=== PATIENT | male | born 1955 | race Caucasian/White ===

== ENCOUNTER 2024-12-23 15:03 | Emergency (ER) | payer MEDICARE, OTHER | END 2024-12-23 16:40 | disposition home or self-care (01) | LOC: JD.ED 15:03 | DX: S51.812A Laceration without foreign body of left forearm, initial encounter (principal); Z88.5 Allergy status to narcotic agent; W26.0XXA Contact with knife, initial encounter | CPT/HCPCS: 12001; 99282; J2003; 99283 ==